=== PATIENT | female | born 1995 | race American Indian/Alaskan Native ===

== ENCOUNTER 2018-06-05 06:08 | Day surgery (SDC) | payer OTHER ==
[~2018-06-05 06:08] MED LIST: ANCEF/STERILE WATER 2 GM/20 ML 2 GM/20 ML SYRINGE IV NR; FLAGYL 500 MG/100 ML 500 MG/100 ML BAG IV NR; NACL 0.9% 1000 ML 1,000 ML IV SCH
[2018-06-05] MEDS ORDERED: NACL BACTERIOSTATIC INFILTRATI ONE (06:15)
[2018-06-05] MEDS ORDERED: SUBLIMAZE ONE (07:12)
[2018-06-05] MEDS ORDERED: ZEMURON IV ONE (07:12)
[2018-06-05] MEDS ORDERED: XYLOCAINE MPF 2% ONE (07:12)
[2018-06-05] MEDS ORDERED: DIPRIVAN 10 MG/ML IV ONE ×2 (07:13→10:35)
[2018-06-05] MEDS ORDERED: MARCAINE 0.5% INFILTRATI ONE ×3 (07:15→07:58)
--- NOTE | 2018-06-05 07:19 | Short Stay Summary ---
Short Stay Documentation Date of service: 06/05/18 - History H&P: obtained from office - Allergies and Medications Current Medications: Allergies No Known Allergies Allergy (Verified 05/31/18 11:21) Home Medications Medication Instructions Recorded Confirmed Last Taken Type No Known Home Medications [No 05/31/18 05/31/18 Unknown History Reported Home Medications] Active Medications Cefazolin Sodium (Ancef/Sterile Water 2 Gm/20 Ml) 2 gm in 20 mls @ 80 mls/hr IV PREOP NR; Protocol Stop: 06/05/18 23:59 Metronidazole (Flagyl 500 Mg/100 Ml) 500 mg in 100 mls @ 200 mls/hr IV PREOP NR; Protocol Stop: 06/05/18 23:59 Sodium Chloride (Nacl 0.9% 1000 Ml) 1,000 mls @ 42 mls/hr IV DIRECT ZANDRA Last Admin: 06/05/18 06:56 Dose: 42 mls/hr Documented by: - Physical exam General appearance: no acute distress Lungs: Normal air movement Neurological: Normal speech - Brief post op/procedure progress note Date of procedure: 06/05/18 (dictation:[id number]) Pre-op diagnosis: pilonidal cyst Post-op diagnosis: same Procedure: excision of pilonidal cyst Anesthesia: GETA Findings: 2 firm cysts with midline pit Surgeon: RADHA BOYD Estimated blood loss: minimal (10cc) Pathology: list (pilonidal cyst tissue - [id number]) Specimen disposition: to lab Condition: stable - Hospital course Hospital course: uneventful - Disposition Condition at discharge: Stable Disposition: DC-01 TO HOME OR SELFCARE Short Stay Discharge Plan Activity: other (no driving until cleared by surgeon) Diet: regular Wound: open to air, keep clean and dry, other (apply ice for 10-15min/4-5 times a day. May shower tomorrow. Pat dry wound. Try not to sit on the wound for more than 1 hour at a time. ) Additional Instructions: APPOINTMENT: DR BOYD WANTS TO SEE YOU IN HIS OFFICE IN 14 DAYS CALL FOR APPINTMENT AND FOR ANY QUESTIONS OR CONCERNS RELATED TO YOUR PROCEDURE. ACTIVITY: NO DRIVING UNTIL CLEARED BY DR BOYD. TRY NOT TO SIT ON WOUND FOR MORE THAN 1 HOUR AT A TIME. MAY SHOWER TOMORROW, PAT DRY. WOUND: LEAVE UNCOVERED KEEP CLEAN AND DRY. APPLY ICE PACK 10- 15 MINUTES PER HOUR 4-5 TIMES PER DAY. DIET REGULAR.. PRESRIPTION : GIVEN FOR PAIN HYDROCODONE TAKE DIRECTED. Follow up with: ANN MARIE LENNON MD [Primary Care Provider] - 7 Days RADHA BOYD MD [Staff Physician] - 14 Days Forms: Outpatient Surgery DC Inst. Prescriptions: HYDROcodone/APAP 5-325 [Addison 5/325] 2 each PO Q6HR PRN #40 tablet PRN Reason: Pain , Severe (7-10)
[2018-06-05] MEDS ORDERED: VERSED ONE (07:27)
[2018-06-05] MEDS ORDERED: DECADRON ONE (07:53)
[2018-06-05] MEDS ORDERED: ZOFRAN ONE (07:53)
[2018-06-05] MEDS ORDERED: ROBINUL ONE (07:53)
[2018-06-05] MEDS ORDERED: BLOXIVERZ ONE (07:54)
[2018-06-05] MEDS ORDERED: XYLOCAINE 1%/ EPI 1:100,000 INFILTRATI ONE ×2 (07:58→08:00)
[2018-06-05] MEDS ORDERED: TORADOL ONE (08:26)
[2018-06-05 10:53] VITALS: BP 137/71
--- NOTE | 2018-06-05 16:04 | Operative Report ---
PREOPERATIVE DIAGNOSIS: Recurrent pilonidal cyst infections. POSTOPERATIVE DIAGNOSIS: Recurrent pilonidal cyst infections. PROCEDURE: Excision of pilonidal cysts. ATTENDING PHYSICIAN: Pantera aKiser MD ANESTHESIA: General. ESTIMATED BLOOD LOSS: Minimal. FLUID: 700 mL. FINDINGS: Two cyst structures on either side of the inner gluteal cleft. SPECIMEN: 5.5 x 3 x 1 cm area of tissue including two cysts. DRAINS: None. COMPLICATIONS: Stable, transferred to Recovery Room. INDICATIONS: This is a 22-year-old female who presented to the office with complaints of recurrent pilonidal cyst infections. The patient was assessed to be in need of excision. Procedure, risks, benefits were explained to the patient. Risks included but were not limited to infection, bleeding, pain, injury to surrounding structures, possible recurrence, possible need for further procedures in the future. The patient understood and consented. OPERATIVE NOTE: The patient was brought to the operating room. After general anesthesia was established, the patient was placed in a prone position. All pressure points were padded, axillary areas were padded. The patient was positioned in the prone position. Sterile prep and drape was done. Time-out was called. I marked out the area where the two cysts were located, a single intergluteal cleft pit was seen. One cyst was located on each side of the midline. There were no signs of any infection. I decided to make a vertical incision on the left buttock lateral to one of the cysts, my plan being to excise the cyst under the skin, hoping not to disrupt the skin. Dissection was carried down into the subcutaneous tissue of the left buttock. I then proceeded across towards the right buttock frequently checking to make sure we did not go through the skin and we did not. I encountered two cystic structures, the left was greater than the right in terms of size and fibrotic reaction. I was able to dissect around both and then removed both as one large tissue specimen. This was a combination of blunt dissection, sharp and electrocautery. The cysts were restricted to the subcutaneous tissue layer. Once they were excised, they were passed off the table in sterile fashion. I checked for hemostasis. We thoroughly irrigated the wound. I decided not to tack down the skin to the underlying subcutaneous tissue because I wanted to flatten out the intergluteal cleft to hopefully minimize chance of recurrence of this disease. Therefore, I closed the dermis of the incision with interrupted 3-0 Vicryl and skin with 4-0 Monocryl subcuticular stitch. Skin was cleaned and dried. Dermabond was placed. The patient tolerated the procedure well. There were no complications. All counts were correct at the end of the case. JOB# [id number] FERMIN/JM BELL
--- NOTE | 2018-06-05 16:17 | Anesthesia Day of Surgery ---
Anesthesia Day of Surgery - Day of Surgery Patient Examined: Yes Patient H&P Reviewed: Yes Patient is NPO: Yes Beta Blockers: No Cardiac Clearance: No Pulmonary Clearance: No Estevan's Test: N/A
--- NOTE | 2018-06-05 16:19 | Anesthesia Consultation ---
Anesthesia Consult and Med Hx Date of service: 06/05/18 - Airway Anesthetic Teeth Evaluation: Good - Pulmonary Exam CTA: Yes - Cardiac Exam Cardiac Exam: RRR - Pre-Operative Health Status ASA Pre-Surgery Classification: ASA1 Proposed Anesthetic Plan: General - Pulmonary Hx Smoking: Yes ( MARIJ[place]) - Central Nervous System Hx Psychiatric Problems: No - Other Systems Hx Alcohol Use: No Hx Substance Use: Yes (MARIJUANA) Hx Cancer: No - Additional Comments Anesthesia Medical History Comments: no problems with anesthesia before.
== END 2018-06-05 06:09 | disposition home or self-care (01) ==
LOC: OR 06:08
PROVIDERS: ATTEND Surgery
DX: L05.91 Pilonidal cyst without abscess (principal); M79.89 Other specified soft tissue disorders; Z79.899 Other long term (current) drug therapy; Z98.890 Other specified postprocedural states
CPT/HCPCS: 11770; 81025; 88305; J0690; J1100; J1885; J2250; J2405; J2704; J2710; J3010; J7030; 88304